=== PATIENT | male | born 1970 | race African-American/Black ===

== ENCOUNTER 2016-08-30 11:30 | Emergency (ER) | payer SELFPAY ==
[2016-08-30] MEDS ORDERED: KETOROLAC 60 MG/2 ML VIAL IM ONE ×2 (13:08→13:09)
[2016-08-30] MEDS ORDERED: ORPHENADRINE 60 MG/2 ML AMP ONE ×2 (13:08→13:09)
== END 2016-08-30 14:18 | disposition home or self-care (01) ==
LOC: FASTR 11:30
DX: M25.512 Pain in left shoulder (principal)
CPT/HCPCS: 96372